=== PATIENT | male | born 1950 | race Caucasian/White ===

== ENCOUNTER 2017-01-06 10:31 | Emergency (ER) | payer MEDICARE ==
[~2017-01-06] VITALS: Ht 170.2 cm; Wt 99.8 kg
[2017-01-06 11:02] VITALS: BP 144/97
[2017-01-06] MEDS ORDERED: HYDROCODONE/APAP 5/325MG 1 EACH TABLET PO ONE (12:00)
[2017-01-06] MEDS ORDERED: HYDROCODONE/APAP 5/325MG 1 EACH TABLET ONE (12:05)
== END 2017-01-06 14:21 | disposition home or self-care (01) ==
LOC: ER 10:39
DX: S60.222A Contusion of left hand, initial encounter (principal); S80.11XA Contusion of right lower leg, initial encounter; V29.9XXA Motorcycle rider (driver) (passenger) injured in unspecified traffic accident, initial encounter; Y93.89 Activity, other specified; Y92.488 Other paved roadways as the place of occurrence of the external cause; Y99.2 Volunteer activity
CPT/HCPCS: 73130-TC; 73590-TC; 82962-TC; A4606; A6402; Z7610